=== PATIENT | male | born 1940 | race Caucasian/White ===

== ENCOUNTER 2018-08-18 09:55 | Inpatient (IN) | payer MEDICARE ==
[~2018-08-18] VITALS: Ht 165.1 cm; Wt 73.6 kg
[2018-08-18] VITALS (22 sets, daily range): BP systolic 79–148; BP diastolic 38–95; PULSE 52–100; RESP 7–65; Ht 165.1 cm; Wt 73.6 kg
[~2018-08-18 09:55] MED LIST: EPHEDrine 25 MG/5 ML SYG IV ONE
[2018-08-18] MEDS ORDERED: ASPI325T30 PO (10:39)
[2018-08-18] MEDS ORDERED: METF500T24 PO (10:39)
[2018-08-18] MEDS ORDERED: TAMS-14 PO ×2 (10:39)
[2018-08-18] MEDS ORDERED: FOLI-49 PO (10:39)
[2018-08-18] MEDS ORDERED: MULTI PO (10:39)
[2018-08-18] MEDS ORDERED: ASCO500C7 PO (10:39)
[2018-08-18] MEDS ORDERED: MONT10TA21 PO (10:39)
[2018-08-18] MEDS ORDERED: ATOR40TA68 PO (10:39)
[2018-08-18] MEDS ORDERED: RAMI10CA42 PO (10:39)
[2018-08-18] MEDS ORDERED: FENO145T25 PO (10:39)
[2018-08-18] MEDS ORDERED: METO-319 PO (10:39)
[2018-08-18] MEDS ORDERED: VIAG25 PO (10:41)
--- NOTE | 2018-08-18 11:25 | PREAC ---
Date/Time of Note Date/Time of Note DATE: 08/18/18 TIME: Anesthesia Eval and Record Evaluation Time Pre-Procedure Interview DATE: 08/18/18 TIME: : Age 77 Sex male NPO: 8 hrs Preoperative diagnosis painful hardware L3-L5 Planned procedure removal of lumbar pedicle screws L3, L4, L5 Past Medical History Past Medical History: Includes Cardio: HTN, Dyslipidemia, CAD, PTCA/Stent Endo: Diabetes Surgery & Anesthesia Issues No known issue Meds Anticoagulation: No Beta Marycruz within 24 hr: Yes Reason Beta Marycruz not given: Bradycarida, Hypotension Reported Medications Sildenafil Citrate* (Viagra*) 25 Mg Tablet, 25 MG PO DAILY PRN for ERECTILE DYSFUN, TAB 08/18/18 Aspirin* (Aspirin*) 325 Mg Tablet, 325 MG PO DAILY, TAB 08/18/18 Fenofibrate Nanocrystallized* (Tricor*) 145 Mg Tablet, 145 MG PO DAILY, TAB 08/18/18 Folic Acid* (Folic Acid*) 1 Mg Tablet, 1 MG PO DAILY, TAB 08/18/18 Atorvastatin* (Atorvastatin*) 40 Mg Tablet, 40 MG PO QHS, #30 TAB 08/18/18 Tamsulosin Hcl* (Flomax*) 0.4 Mg Cap.er.24h, 0.4 MG PO BID, CAP 08/18/18 Montelukast Sodium* (Singulair*) 10 Mg Tablet, 10 MG PO QAM, #30 TAB 08/18/18 Tamsulosin Hcl* (Flomax*) 0.4 Mg Cap.er.24h, 0.4 MG PO HS, CAP 08/18/18 Multivitamins* (Theragran*) 1 Tab Tab, 1 TAB PO DAILY, TAB 08/18/18 Ascorbic Acid* (Vitamin C*) 500 Mg Capsule.sa, 500 MG PO DAILY, CAP 08/18/18 Metoprolol Succinate* (Toprol XL*) 50 Mg Tab.er.24h, 50 MG PO DAILY, #30 TAB 08/18/18 Ramipril (Altace) 10 Mg Capsule, 10 MG PO DAILY, CAP 08/18/18 Metformin Hcl* (Metformin Hcl*) 500 Mg Tablet, 500 MG PO WITH BREAKFAST DINNE, #30 TAB 08/18/18 Current Medications Sodium Chloride 1,000 ml @ 25 mls/hr Q24H IV ; Start 08/18/18 at 11:00 Meds reviewed: Yes Allergies Coded Allergies: Penicillins (Verified Allergy, Severe, RASHES, 08/18/18) Allergies Reviewed: Yes Labs/Studies Labs Reviewed: Reviewed by anesthesiologist test: N/A Studies: ECG, CXR Pre-procedure Exam Airway: Adequate mouth opening, Adequate thyromental dist Mallampati: Mallampati II Teeth: Normal Lung: Normal Heart: Normal ASA Physical Status ASA physical status: 3 Emergency: None Planned Anesthetic General/MAC: ETT Planned Pain Management Parenteral pain med Pre-operative Attestations Prior to commencing anesthesia and surgery, the patient was re-evaluated, there was verification of: *The patient's identity *The results of appropriate recent lab work and preoperative vital signs *The above evaluation not changing prior to induction *Anesthetic plan, risk benefits, alternative and complications discussed with patient/family; questions answered; patient/family understands, accepts and wishes to proceed. JOHN SCHULTZ MD Aug 18, 2018 11:25
[2018-08-18] MEDS ORDERED: LIDOCAINE 1%/EPI 30 ML INJ ONE (11:48)
[2018-08-18] MEDS ORDERED: POLYMYXIN/BACITRACIN 1L IRRIG ONE (11:48)
[2018-08-18] MEDS ORDERED: GELATIN SIZE 100 SPONGE TOP ONE (11:48)
[2018-08-18] MEDS ORDERED: THROMBIN 5000 UNIT VIAL ONE (11:48)
[2018-08-18] MEDS ORDERED: SUCCINYLCHOLINE CHLORIDE 100 MG/5 ML SYG IV ONE (11:54)
[2018-08-18] MEDS ORDERED: MIDAZOLAM 1 MG/ML 2 ML INJ ONE (11:54)
[2018-08-18] MEDS ORDERED: ROCURONIUM 50 MG INJ ONE (11:54)
[2018-08-18] MEDS ORDERED: LIDOCAINE 2% (SDV) 5 ML INJ ONE (11:54)
[2018-08-18] MEDS ORDERED: PROPOFOL 20 ML ONE (11:54)
[2018-08-18] MEDS ORDERED: FENTAnyl 50 MCG/ML VIAL ONE (11:57)
[2018-08-18] MEDS ORDERED: CLINDAMYCIN 900 MG/D5W (PMX) 50 ML IVPB ONE (12:25)
[2018-08-18] MEDS ORDERED: ONDANSETRON 4 MG INJ ONE (12:26)
[2018-08-18] MEDS ORDERED: METOCLOPRAMIDE 10 MG INJ ONE (12:26)
[2018-08-18] MEDS ORDERED: FAMOTIDINE 20 MG INJ ONE (12:26)
--- NOTE | 2018-08-18 12:33 | PREOPHP ---
DATE OF ADMISSION: 08/18/2018 HISTORY OF PRESENT ILLNESS: The patient is a 77-year-old male with a history of a lumbar fusion at L 3-L4-L5, has been having pain in the lumbar spine for quite some time now. He had a surgery back in 1999 with L3, L4, L5 laminectomy, fusion, instrumentation. The patient now having hardware pain. He has tried lumbar epidural injections without any relief. Has tried physical therapy, pain managemen t without relief. The patient wants something more definitive to be done. Unfortunately the only op tion left at this point is for patient to undergo removal of lumbar hardware. The procedure was expl ained to the patient in great detail with complications that were explained excessively. The patient understands and will proceed with the surgical intervention. PAST MEDICAL HISTORY: Per chart. SURGICAL HISTORY: Per chart, including lumbar fusion approximately 19 years ago. SOCIAL HISTORY: Per chart. ALLERGIES: PER CHART. MEDICATIONS: Taken at home per chart. FAMILY HISTORY: Unremarkable. REVIEW OF SYSTEMS The pertinent positives stated in physical examination. PHYSICAL EXAMINATION: GENERAL: Patient is awake, alert, oriented, follows commands properly. HEENT: Unremarkable. PULMONARY: No dyspnea, no tachypnea. CARDIOVASCULAR: No JVD. EXTREMITIES: No pedal edema noted. ABDOMEN: Soft. No guarding. NEUROLOGIC: Awake, alert, oriented, follows commands. Has good strength in the upper extremities. Lower extremity examination of both sides but is having some weakness and pain with rotation and flex ion of the lumbar spine. IMAGING FINDINGS: X-rays of the lumbar spine shows L3-L4-L5 laminectomy with pedicle screw ins trumentation. ASSESSMENT AND PLAN: Lumbar hardware pain. Recommendation is to proceed with surgical intervention with removal of lumbar hardware. The procedure explained to the patient in great detail with benefit s, possible complications heart attack and even as well as the complications associated wi th anesthesia. The patient understands and wishes to proceed with the surgery. Patient will be admi tted to the hospital thereafter for further care and management. Dictated By: TIMMY MERINO/LORY Conf#: [id number] DID#: [id number]
[2018-08-18] MEDS ORDERED: hydrALAzine 20 MG INJ IV PRN (13:00)
[2018-08-18] MEDS ORDERED: MEPERIDINE 25 MG INJ IV PRN (13:00)
[2018-08-18] MEDS ORDERED: EPHEDrine 25 MG/5 ML SYG IV PRN (13:00)
[2018-08-18] MEDS ORDERED: ONDANSETRON 4 MG INJ IV PRN ×2 (13:00→18:00)
[2018-08-18] MEDS ORDERED: LABETALOL HCL 20MG INJ IV PRN (13:00)
[2018-08-18] MEDS ORDERED: DIPHENHYDRAMINE 50 MG INJ IV PRN (13:00)
[2018-08-18] MEDS ORDERED: HYDROmorphONE 1 MG/5 ML IV SYRINGE IV PRN ×3 (13:00)
[2018-08-18] MEDS ORDERED: PROCHLORPERAZINE 10 MG INJ IV PRN (13:00)
[2018-08-18] MEDS ORDERED: FENTAnyl 50 MCG/ML VIAL IV PRN (13:00)
[2018-08-18] MEDS ORDERED: HYDROmorphONE 2 MG/ML SYG ONE (13:25)
[2018-08-18] MEDS ORDERED: PHENYLephrine (100 MCG/ML) 10ML SYG ONE (13:51)
--- NOTE | 2018-08-18 14:06 | OPR ---
Date/Time of Note Date/Time of Note DATE: 08/18/18 TIME: 14:04 Operative Report Preoperative Diagnosis lumbar hardware pain Postoperative Diagnosis same Operation/Procedure Performed removal of lumbar hardware, l3-4-5 Surgeon TIMMY BENJAMIN MD Telephone Answering Service Operator Slim Garcia Anesthesia Type: general Estimated Blood Loss: 100 - 150 ml's Transfusion none Specimen lumbar hardware Grafts/Implants none Complications none Pt Condition Post Procedure: stable Procedure Description removal of lumbar 3-4-5 hardware SLIM STOUT PA-C Aug 18, 2018 14:06
--- NOTE | 2018-08-18 14:21 | PAC ---
Date/Time of Note Date/Time of Note DATE: 08/18/18 TIME: 14:19 Post-Anesthesia Notes Post-Anesthesia Note Last documented vital signs Vital Signs Date Temp Pulse Resp B/P (MAP) Pulse Ox O2 O2 Flow FiO2 Time Delivery Rate 08/18/18 97.2 52 16 143/71 97 11:19 (95) Activity: WNL Respiratory function: WNL Cardiovascular function: WNL Mental status: Baseline Pain reasonably controlled: Yes Hydration appropriate: Yes Nausea/Vomiting absent: Yes Comments BP: 121/95 HR: 86 RR: 15 T: 98.3 SaO2: 98% JOHN SCHULTZ MD Aug 18, 2018 14:21
[2018-08-18] MEDS ORDERED: HYDROCODONE/APAP (5/325) TAB PO PRN (14:30)
[2018-08-18] MEDS ORDERED: morphine 2 MG INJ IV PRN (14:30)
[2018-08-18] MEDS: SOD CHLORIDE 0.9% 1,000 ML IV SCH (15:06)
--- NOTE | 2018-08-18 17:45 | HP ---
Date/Time of Note Date/Time of Note DATE: 08/18/18 TIME: 17:32 Assessment/Plan VTE Prophylaxis Risk score (from Ns)>0 risk: 5 SCD applied (from Ns): Yes Pharmacological prophylaxis: NA/contraindicated Pharm contraindication: surgical contra Lines/Catheters IV Catheter Type (from Nrsg): Peripheral IV Assessment/Plan Assessment/Plan -Acute on chronic back pain with history of L3-L4-L5 meniscectomy fusion and instrumentation, status post lumbar hardware removal by Dr. Fajardo on 08/18/2018. Continue IV fluids and postoperative antibiotic. Continue [place] and morphine for pain and Zofran as needed for nausea. -History of VT, status post cardiac stent placement, continue metoprolol and aspirin. -Pretension, continue ramipril -Hyperlipidemia, continue TriCor and statin. -Diabetes, continue metformin and NovoLog per sliding scale -BPH continue Flomax ID. Further recommendations based on clinical course. Plan of care discussed with Dr. Adams. Results 24hrs Laboratory Tests Test 08/18/18 10:51 Bedside Glucose 144 HPI/ROS Admit Date/Time Admit Date/Time Aug 18, 2018 at 09:55 Hx of Present Illness Patient is 77-year-old male with history of coronary artery disease status post stent placement, hypertension hyperlipidemia, diabetes and enlarged prostate, and chronic low back pain. Patient has a history of L3-L4-L5 laminectomy fusion and instrumentation in 1999. Patient was evaluated by Dr. Fraser in neurosurgery consultation for worsening pain which failed epidural injections physical therapy and pain management. Patient was brought to the hospital and underwent lumbar hardware removal. Postoperatively patient experiencing significant pain, nausea and anxiety and patient will be admitted for further evaluation and management. ROS Point review of system is negative except for what mentioned in HPI PMH/Family/Social Past Medical History Medical History: coronary artery disease, high cholesterol, hypertension Medications Current Medications Sodium Chloride 1,000 ml @ 25 mls/hr Q24H IV Last administered on 08/18/18at 15:06; Admin Dose 25 MLS/HR; Start 08/18/18 at 11:00 Hydromorphone HCl (Dilaudid) 0.2 mg PACU PRN IV MILD PAIN 1-3; Start 08/18/18 at 13:00; Stop 08/18/18 at 20:00 Hydromorphone HCl (Dilaudid) 0.4 mg PACU PRN IV MOD PAIN 4-6; Start 08/18/18 at 13:00; Stop 08/18/18 at 20:00 Hydromorphone HCl (Dilaudid) 0.6 mg PACU PRN IV SEVERE PAIN 7-10; Start 08/18/18 at 13:00; Stop 08/18/18 at 20:00 Fentanyl (Sublimaze) 25 mcg PACU ORDER PRN IV MILD PAIN 1-3; Start 08/18/18 at 13:00; Stop 08/18/18 at 20:00 Ondansetron HCl (Zofran Inj) 4 mg PACU ORDER PRN IV NAUSEA/VOMITING Last administered on 08/18/18at 16:26; Admin Dose 4 MG; Start 08/18/18 at 13:00; Stop 08/18/18 at 20:00 Prochlorperazine (Compazine Inj) 5 mg PACU ORDER PRN IV NAUSEA/VOMITING; Start 08/18/18 at 13:00; Stop 08/18/18 at 20:00 Labetalol HCl (Labetalol) 5 mg PACU ORDER PRN IV HIGH BLOOD PRESSURE; Start 08/18/18 at 13:00; Stop 08/18/18 at 20:00 Hydralazine HCl (Apresoline) 5 mg PACU ORDER PRN IV HIGH BLOOD PRESSURE; Start 08/18/18 at 13:00; Stop 08/18/18 at 20:00 Ephedrine Sulfate 5 mg PACU ORDER PRN IV BLOOD PRESSURE SUPPORT; Start 08/18/18 at 13:00; Stop 08/18/18 at 20:00 Meperidine HCl (Demerol) 25 mg PACU ORDER PRN IV .RIGORS; Start 08/18/18 at 13:0 0; Stop 08/18/18 at 20:00 Diphenhydramine HCl (Benadryl) 25 mg PACU ORDER PRN IV .PRURITUS; Start 08/18/18 at 13:00; Stop 08/18/18 at 20:00 Morphine Sulfate (morphine) 2 mg Q4H PRN IV SEVERE PAIN LEVEL 7-10; Start 08/18/18 at 14:30 Acetaminophen/ Hydrocodone Bitart ([place] (5/325)) 1 tab Q4H PRN PO MODERATE PAIN LEVEL 4-6; Start 08/18/18 at 14:30 Ondansetron HCl (Zofran Inj) 4 mg Q6H PRN IV NAUSEA AND/OR VOMITING; Start 08/18/18 at 14:30 Clindamycin HCl/ Dextrose 50 ml @ 50 mls/hr Q6 IVPB ; Start 08/18/18 at 18:00; Stop 08/19/18 at 18:00 Coded Allergies: Penicillins (Verified Allergy, Severe, RASHES, 08/18/18) Past Surgical History Past Surgical Hx: other (Status post lumbar laminectomy instrumentation and fusion in 1999, status post cardiac stent placement in 2001, status post appendectomy 1950.) Family History Significant Family History: no pertinent family hx Social History Alcohol Use: none Smoking Status: Former smoker Drug Use: none Exam/Review of Systems Vital Signs Vitals Vital Signs Date Temp Pulse Resp B/P (MAP) Pulse Ox O2 O2 Flow FiO2 Time Delivery Rate 08/18/18 56 141/61 98 Nasal 3.0 15:07 (87) Cannula 08/18/18 98.3 14:21 08/18/18 100 14:13 Exam Constitutional: alert, oriented Head: normocephalic Neck: supple Respiratory: clear to auscultation Cardiovascular: regular rate and rhythm Gastrointestinal: soft, non-tender Musculoskeletal: other (Status post back surgical incision with intact dressing, Hemovac ) Extremities: normal pulses Neurological: nl mental status Skin: nl SCARLET Holder Aug 18, 2018 17:43
[2018-08-18] MEDS ORDERED: ZOLPIDEM 5 MG TAB PO PRN (18:00)
[2018-08-18] MEDS ORDERED: GLUCOSE GEL 15 GRAM TUBE PO PRN ×2 (18:30)
[2018-08-18] MEDS ORDERED: DEXTROSE 50% 50 ML SYRINGE IV PRN ×2 (18:30)
[2018-08-18] MEDS: INSULIN ASPART [NOVOLOG] 3 ML PEN SC SCH ×2 (18:30→21:00)
[2018-08-18] MEDS ORDERED: GLUCAGON 1 MG INJ IM PRN (18:30)
[2018-08-18] MEDS ORDERED: GLUCOSE GEL 15 GRAM TUBE BUCCAL PRN (18:30)
[2018-08-18] MEDS: ONDANSETRON 4 MG INJ IV PRN (20:07)
[2018-08-18] MEDS: ATORVASTATIN 40 MG TAB PO SCH (20:09)
[2018-08-18] MEDS: TAMSULOSIN (SR) 0.4 MG CAP PO SCH (20:10)
[2018-08-18] MEDS: FAMOTIDINE 20 MG TAB PO SCH (20:10)
[2018-08-18] MEDS: DOCUSATE SODIUM 100 MG CAP PO SCH (20:10)
[2018-08-18] MEDS: CLINDAMYCIN 600 MG/D5W (PMX) 50 ML IVPB SCH (20:14)
[2018-08-18] MEDS ORDERED: TAMSULOSIN (SR) 0.4 MG CAP PO SCH (21:00)
[2018-08-19 00:32] VITALS: BP 134/62; PULSE 78; RESP 18
[2018-08-19] MEDS: CLINDAMYCIN 600 MG/D5W (PMX) 50 ML IVPB SCH ×4 (00:42→18:27)
[2018-08-19 07:30] VITALS: BP 135/85; PULSE 97; RESP 18
[2018-08-19] MEDS: MONTELUKAST 10 MG TAB PO SCH (08:49)
[2018-08-19] MEDS: FOLIC ACID 1 MG TAB PO SCH (08:50)
[2018-08-19] MEDS: FAMOTIDINE 20 MG TAB PO SCH ×2 (08:50→21:52)
[2018-08-19] MEDS: TAMSULOSIN (SR) 0.4 MG CAP PO SCH ×2 (08:50→21:52)
[2018-08-19] MEDS: DOCUSATE SODIUM 100 MG CAP PO SCH ×2 (08:50→21:58)
[2018-08-19] MEDS: metFORMIN 500 MG TAB PO SCH ×2 (08:50→16:55)
[2018-08-19] MEDS: FENOFIBRATE 145 MG TAB PO SCH (08:50)
[2018-08-19] MEDS: FINASTERIDE 5 MG TAB PO SCH (08:50)
[2018-08-19] MEDS: MULTIVITAMINS THERAPEUTIC TAB PO SCH (08:51)
[2018-08-19] MEDS: BENAZEPRIL 40 MG TAB PO SCH (08:51)
[2018-08-19] MEDS: ASCORBIC ACID 500 MG TAB PO SCH (08:51)
[2018-08-19] MEDS: METOPROLOL (XL) 50 MG TAB PO SCH (08:52)
[2018-08-19] MEDS: INSULIN ASPART [NOVOLOG] 3 ML PEN SC SCH ×4 (08:56→21:00)
[2018-08-19] MEDS ORDERED: ASPIRIN 325 MG TAB PO SCH (09:00)
[2018-08-19] MEDS: SOD CHLORIDE 0.9% 1,000 ML IV SCH (11:00)
[2018-08-19] MEDS ORDERED: traMADol 50 MG TAB PO PRN (14:00)
--- NOTE | 2018-08-19 14:16 | PN ---
Date/Time of Note Date/Time of Note DATE: 08/19/18 TIME: 14:02 Assessment/Plan VTE Prophylaxis Risk score (from Ns)>0 risk: 3 SCD applied (from Ns): Yes Pharmacological prophylaxis: NA/contraindicated Pharm contraindication: surgical contra Lines/Catheters IV Catheter Type (from Nrsg): Peripheral IV Urinary Cath still in place: No Assessment/Plan Hospital Course Patient is awake, alert, pain is adequately controlled minimal amount of drainage from Hemovac. Patient complains of difficulty voiding, continued on Flomax and finasteride. Dr. Boyd is asked to see patient in urology consultation. Assessment/Plan -Acute on chronic back pain with history of L3-L4-L5 meniscectomy fusion and instrumentation, status post lumbar hardware removal by Dr. Fajardo on 08/18/2018. Continue IV fluids and postoperative antibiotic. Continue [place] and morphine for pain and Zofran as needed for nausea. -History of VA, status post cardiac stent placement, continue metoprolol and aspirin. -Pretension, continue ramipril -Hyperlipidemia, continue TriCor and statin. -Diabetes, continue metformin and NovoLog per sliding scale -BPH, continue Flomax and finasteride. Further recommendations based on clinical course. Plan of care discussed with Dr. Adams. Result Diagram: 08/19/18 0435 08/19/18 0435 Results 24hrs Laboratory Tests Test 08/18/18 21:55 08/19/18 04:35 08/19/18 07:13 08/19/18 08:47 Bedside Glucose 166 160 White Blood Count 9.7 Red Blood Count 4.18 L Hemoglobin 13.3 L Hematocrit 38.7 L Mean Corpuscular 92.6 Volume Mean Corpuscular 31.8 Hemoglobin Mean Corpuscular 34.4 Hemoglobin Concent Red Cell 12.7 Distribution Width Platelet Count 177 Mean Platelet 11.2 H Volume Immature 0.400 Granulocytes % Neutrophils % 80.1 H Lymphocytes % 11.8 L Monocytes % 7.0 Eosinophils % 0.0 Basophils % 0.7 Nucleated Red 0.0 Blood Cells % Immature 0.040 H Granulocytes # Neutrophils # 7.7 H Lymphocytes # 1.1 Monocytes # 0.7 Eosinophils # 0.0 Basophils # 0.1 Nucleated Red 0.0 Blood Cells # Sodium Level 141 Potassium Level 4.1 Chloride Level 105 Carbon Dioxide 24 Level Anion Gap 12 Blood Urea 16 Nitrogen Creatinine 1.02 Est Glomerular Filtrat Rate mL/min Glucose Level 164 Calcium Level 9.4 Lab Scanned Report REFERENCE LAB Test 08/19/18 12:52 Bedside Glucose 165 Exam/Review of Systems Exam Vitals Vital Signs Date Temp Pulse Resp B/P (MAP) Pulse Ox O2 O2 Flow FiO2 Time Delivery Rate 08/19/18 98.3 97 18 135/85 97 07:30 (102) 08/19/18 Room Air 00:32 08/18/18 3.0 15:57 Intake and Output 08/18/18 08/18/18 08/19/18 1515:00 23:00 07:00 IntakeIntake Total 1300 ml 70 ml 400 ml OutputOutput Total 110 ml 230 ml 370 ml BalanceBalance 1190 ml -160 ml 30 ml Exam Constitutional: alert, oriented Respiratory: clear to auscultation Cardiovascular: regular rate and rhythm Gastrointestinal: soft, non-tender Musculoskeletal: other (Status post back surgical incision with intact dressing, Hemovac) Extremities: normal pulses Neurological: nl mental status Skin: nl turgor Results Results 24hrs Laboratory Tests Test 08/18/18 21:55 08/19/18 04:35 08/19/18 07:13 08/19/18 08:47 Bedside Glucose 166 160 White Blood Count 9.7 Red Blood Count 4.18 L Hemoglobin 13.3 L Hematocrit 38.7 L Mean Corpuscular 92.6 Volume Mean Corpuscular 31.8 Hemoglobin Mean Corpuscular 34.4 Hemoglobin Concent Red Cell 12.7 Distribution Width Platelet Count 177 Mean Platelet 11.2 H Volume Immature 0.400 Granulocytes % Neutrophils % 80.1 H Lymphocytes % 11.8 L Monocytes % 7.0 Eosinophils % 0.0 Basophils % 0.7 Nucleated Red 0.0 Blood Cells % Immature 0.040 H Granulocytes # Neutrophils # 7.7 H Lymphocytes # 1.1 Monocytes # 0.7 Eosinophils # 0.0 Basophils # 0.1 Nucleated Red 0.0 Blood Cells # Sodium Level 141 Potassium Level 4.1 Chloride Level 105 Carbon Dioxide 24 Level Anion Gap 12 Blood Urea 16 Nitrogen Creatinine 1.02 Est Glomerular Filtrat Rate mL/min Glucose Level 164 Calcium Level 9.4 Lab Scanned Report REFERENCE LAB Test 08/19/18 12:52 Bedside Glucose 165 Medications Medication Current Medications Sodium Chloride 1,000 ml @ 25 mls/hr Q24H IV Last administered on 08/18/18 15:06; Admin Dose 25 MLS/HR; Start 08/18/18 at 11:00 Morphine Sulfate (morphine) 2 mg Q4H PRN IV SEVERE PAIN LEVEL 7-10; Start 08/18/18 at 14:30 Acetaminophen/ Hydrocodone Bitart ([place] (5/325)) 1 tab Q4H PRN PO MODERATE PAIN LEVEL 4-6; Start 08/18/18 at 14:30 Ondansetron HCl (Zofran Inj) 4 mg Q6H PRN IV NAUSEA AND/OR VOMITING Last administered on 08/18/18 20:07; Admin Dose 4 MG; Start 08/18/18 at 14:30 Clindamycin HCl/ Dextrose 50 ml @ 50 mls/hr Q6 IVPB Last administered on 08/19/18 12:54; Admin Dose 50 MLS/HR; Start 08/18/18 at 18:00; Stop 08/19/18 at 18:00 Ascorbic Acid (Vitamin C) 500 mg DAILY PO Last administered on 08/19/18 08:51; Admin Dose 500 MG; Start 08/19/18 at 09:00 Aspirin (Aspirin) 325 mg DAILY PO ; Start 08/19/18 at 09:00; Status Hold Atorvastatin Calcium (Lipitor) 40 mg QHS PO Last administered on 08/18/18 20:09; Admin Dose 40 MG; Start 08/18/18 at 21:00 Fenofibrate (Tricor) 145 mg DAILY PO Last administered on 08/19/18 08:50; Admin Dose 145 MG; Start 08/19/18 at 09:00 Folic Acid (Folic Acid) 1 mg DAILY PO Last administered on 08/19/18 08:50; Admin Dose 1 MG; Start 08/19/18 at 09:00 Metformin HCl (Glucophage) 500 mg WITH BREAKFAST DINNE PO Last administered on 08/19/18 08:50; Admin Dose 500 MG; Start 08/19/18 at 07:50 Metoprolol Succinate (Toprol Xl) 50 mg DAILY PO Last administered on 08/19/18 08:52; Admin Dose 50 MG; Start 08/19/18 at 09:00 Montelukast Sodium (Singulair) 10 mg QAM PO Last administered on 08/19/18 08:49; Admin Dose 10 MG; Start 08/19/18 at 09:00 Multivitamins Therapeutic (Theragran) 1 tab DAILY PO Last administered on 08/19/18 08:51; Admin Dose 1 TAB; Start 08/19/18 at 09:00 Benazepril HCl (Lotensin) 40 mg DAILY PO Last administered on 08/19/18 08:51; Admin Dose 40 MG; Start 08/19/18 at 09:00 Tamsulosin HCl (Flomax) 0.4 mg BID PO Last administered on 08/19/18 08:50; Admin Dose 0.4 MG; Start 08/18/18 at 21:00 Ondansetron HCl (Zofran Inj) 4 mg Q6H PRN IV NAUSEA/VOMITING; Start 08/18/18 at 18:00 Docusate Sodium (Colace) 100 mg Q12 PO Last administered on 08/19/18 08:50; Admin Dose 100 MG; Start 08/18/18 at 21:00 Zolpidem Tartrate (Ambien) 5 mg QHS PRN PO .INSOMNIA; Start 08/18/18 at 18:00 Famotidine (Pepcid) 20 mg Q12 PO Last administered on 08/19/18 08:50; Admin Dose 20 MG; Start 08/18/18 at 21:00 Insulin Aspart (Novolog Insulin Pen) NOVOLOG *MILD* ALGORITHM WITH MEALS BEDTIME SC Last administered on 08/19/18 12:58; Admin Dose 1 UNIT; Start 08/18/18 at 18:30 Miscellaneous Information 1 ea NOTE XX ; Start 08/18/18 at 18:30 Glucose (Glutose) 15 gm Q15M PRN PO DECREASED GLUCOSE; Start 08/18/18 at 18:30 Glucose (Glutose) 22.5 gm Q15M PRN PO DECREASED GLUCOSE; Start 08/18/18 at 18:3 0 Dextrose (D50w Syringe) 25 ml Q15M PRN IV DECREASED GLUCOSE; Start 08/18/18 at 18:30 Dextrose (D50w Syringe) 50 ml Q15M PRN IV DECREASED GLUCOSE; Start 08/18/18 at 18:30 Glucagon (Glucagen) 1 mg Q15M PRN IM DECREASED GLUCOSE; Start 08/18/18 at 18:30 Glucose (Glutose) 15 gm Q15M PRN BUCCAL DECREASED GLUCOSE; Start 08/18/18 at 18:30 Finasteride (Proscar) 5 mg DAILY PO Last administered on 08/19/18at 08:50; Admin Dose 5 MG; Start 08/19/18 at 09:00 SCARLET SU Aug 19, 2018 14:14
[2018-08-19 14:23] VITALS: BP 129/94; PULSE 90; RESP 18
--- NOTE | 2018-08-19 15:46 | CONS ---
Assessment/Plan Assessment/Plan Assessment/Plan (Daily) seen and examined awake alert follows moves all sens intact pt co urinary retention, pt has hx of urinary retention and hx of enlarged prostate will insert hernandez overnight and will dc hernandez maría elena keep drain in place Consultation Date/Type/Reason Admit Date/Time Aug 18, 2018 at 09:55 Initial Consult Date Date/Time of Note DATE: 08/19/18 TIME: 15:41 Exam/Review of Systems Exam Vitals Vital Signs Date Temp Pulse Resp B/P (MAP) Pulse Ox O2 O2 Flow FiO2 Time Delivery Rate 08/19/18 98.8 90 18 129/94 100 14:23 (106) 08/19/18 Room Air 00:32 08/18/18 3.0 15:57 Intake and Output 08/18/18 08/18/18 08/19/18 1515:00 23:00 07:00 IntakeIntake Total 1300 ml 70 ml 400 ml OutputOutput Total 110 ml 230 ml 370 ml BalanceBalance 1190 ml -160 ml 30 ml Results Result Diagram: 08/19/18 0435 08/19/18 0435 Results 24hrs Laboratory Tests Test 08/18/18 21:55 08/19/18 04:35 08/19/18 07:13 08/19/18 08:47 Bedside Glucose 166 160 White Blood Count 9.7 Red Blood Count 4.18 L Hemoglobin 13.3 L Hematocrit 38.7 L Mean Corpuscular 92.6 Volume Mean Corpuscular 31.8 Hemoglobin Mean Corpuscular 34.4 Hemoglobin Concent Red Cell 12.7 Distribution Width Platelet Count 177 Mean Platelet 11.2 H Volume Immature 0.400 Granulocytes % Neutrophils % 80.1 H Lymphocytes % 11.8 L Monocytes % 7.0 Eosinophils % 0.0 Basophils % 0.7 Nucleated Red 0.0 Blood Cells % Immature 0.040 H Granulocytes # Neutrophils # 7.7 H Lymphocytes # 1.1 Monocytes # 0.7 Eosinophils # 0.0 Basophils # 0.1 Nucleated Red 0.0 Blood Cells # Sodium Level 141 Potassium Level 4.1 Chloride Level 105 Carbon Dioxide 24 Level Anion Gap 12 Blood Urea 16 Nitrogen Creatinine 1.02 Est Glomerular Filtrat Rate mL/min Glucose Level 164 Calcium Level 9.4 Lab Scanned Report REFERENCE LAB Test 08/19/18 12:52 Bedside Glucose 165 Medications Medication Current Medications Sodium Chloride 1,000 ml @ 25 mls/hr Q24H IV Last administered on 08/18/18 15:06; Admin Dose 25 MLS/HR; Start 08/18/18 at 11:00 Morphine Sulfate (morphine) 2 mg Q4H PRN IV SEVERE PAIN LEVEL 7-10; Start 08/18/18 at 14:30 Acetaminophen/ Hydrocodone Bitart ([place] (5/325)) 1 tab Q4H PRN PO MODERATE PAIN LEVEL 4-6; Start 08/18/18 at 14:30 Ondansetron HCl (Zofran Inj) 4 mg Q6H PRN IV NAUSEA AND/OR VOMITING Last administered on 08/18/18 20:07; Admin Dose 4 MG; Start 08/18/18 at 14:30 Clindamycin HCl/ Dextrose 50 ml @ 50 mls/hr Q6 IVPB Last administered on 08/19/18 12:54; Admin Dose 50 MLS/HR; Start 08/18/18 at 18:00; Stop 08/19/18 at 18:00 Ascorbic Acid (Vitamin C) 500 mg DAILY PO Last administered on 08/19/18 08:51; Admin Dose 500 MG; Start 08/19/18 at 09:00 Aspirin (Aspirin) 325 mg DAILY PO ; Start 08/19/18 at 09:00; Status Hold Atorvastatin Calcium (Lipitor) 40 mg QHS PO Last administered on 08/18/18 20:09; Admin Dose 40 MG; Start 08/18/18 at 21:00 Fenofibrate (Tricor) 145 mg DAILY PO Last administered on 08/19/18 08:50; Admin Dose 145 MG; Start 08/19/18 at 09:00 Folic Acid (Folic Acid) 1 mg DAILY PO Last administered on 08/19/18 08:50; Admin Dose 1 MG; Start 08/19/18 at 09:00 Metformin HCl (Glucophage) 500 mg WITH BREAKFAST DINNE PO Last administered on 08/19/18 08:50; Admin Dose 500 MG; Start 08/19/18 at 07:50 Metoprolol Succinate (Toprol Xl) 50 mg DAILY PO Last administered on 08/19/18 08:52; Admin Dose 50 MG; Start 08/19/18 at 09:00 Montelukast Sodium (Singulair) 10 mg QAM PO Last administered on 08/19/18 08:49; Admin Dose 10 MG; Start 08/19/18 at 09:00 Multivitamins Therapeutic (Theragran) 1 tab DAILY PO Last administered on 08/19/18 08:51; Admin Dose 1 TAB; Start 08/19/18 at 09:00 Benazepril HCl (Lotensin) 40 mg DAILY PO Last administered on 08/19/18 08:51; Admin Dose 40 MG; Start 08/19/18 at 09:00 Tamsulosin HCl (Flomax) 0.4 mg BID PO Last administered on 08/19/18 08:50; Admin Dose 0.4 MG; Start 08/18/18 at 21:00 Ondansetron HCl (Zofran Inj) 4 mg Q6H PRN IV NAUSEA/VOMITING; Start 08/18/18 at 18:00 Docusate Sodium (Colace) 100 mg Q12 PO Last administered on 08/19/18 08:50; Admin Dose 100 MG; Start 08/18/18 at 21:00 Zolpidem Tartrate (Ambien) 5 mg QHS PRN PO .INSOMNIA; Start 08/18/18 at 18:00 Famotidine (Pepcid) 20 mg Q12 PO Last administered on 08/19/18 08:50; Admin Dose 20 MG; Start 08/18/18 at 21:00 Insulin Aspart (Novolog Insulin Pen) NOVOLOG *MILD* ALGORITHM WITH MEALS BEDTIME SC Last administered on 08/19/18 12:58; Admin Dose 1 UNIT; Start 08/18/18 at 18:30 Miscellaneous Information 1 ea NOTE XX ; Start 08/18/18 at 18:30 Glucose (Glutose) 15 gm Q15M PRN PO DECREASED GLUCOSE; Start 08/18/18 at 18:30 Glucose (Glutose) 22.5 gm Q15M PRN PO DECREASED GLUCOSE; Start 08/18/18 at 18:30 Dextrose (D50w Syringe) 25 ml Q15M PRN IV DECREASED GLUCOSE; Start 08/18/18 at 18:30 Dextrose (D50w Syringe) 50 ml Q15M PRN IV DECREASED GLUCOSE; Start 08/18/18 at 18:30 Glucagon (Glucagen) 1 mg Q15M PRN IM DECREASED GLUCOSE; Start 08/18/18 at 18:30 Glucose (Glutose) 15 gm Q15M PRN BUCCAL DECREASED GLUCOSE; Start 08/18/18 at 18:30 Finasteride (Proscar) 5 mg DAILY PO Last administered on 08/19/18at 08:50; Admin Dose 5 MG; Start 08/19/18 at 09:00 Tramadol HCl (Ultram) 50 mg Q6H PRN PO MODERATE PAIN LEVEL 4-6; Start 08/19/18 at 14:00 ERIKA STOUT PA-C Aug 19, 2018 15:46
--- NOTE | 2018-08-19 18:41 | CONS ---
Assessment/Plan Assessment/Plan Hospital Course (Demo Recall) 77-year-old male underwent surgery on August 18, 2018. He had hardware removed from his lumbar area L3-L4 and L5 Postop he has not been able to urinate and had a Jimenez catheter put in and when the catheter was removed he still was unable to urinate even though he is on tamsulosin 0.4 mg twice a day and finasteride 5 mg daily. Therefore a urological consultation was requested. The patient does have a history of enlargement of the prostate and has been taking the medication for it for the past 2 years. He usually does have nocturia about 2 times a night and during the day he voids 2-3 times he describes his urinary stream is medium he denies any dysuria he does have postvoid dribbling that is mild and he feels he does not empty his bladder well however at night he does urinate and when he finished he feels like he has to urinate again he was told by his urologist to wait and count to 20 and then urinate again patient denies any prior history of gross hematuria and there is no urgency or urgency incontinence. He states that his serum PSA has been normal and he has not had any cystoscopy or prostate biopsy. The patient underwent pelvic ultrasound today and that showed a high postvoid residual and an enlarged prostate. Because of the bladder distention again he had a Jimenez catheter put in. He with urinary retention could be related to his pain and the fact that he is in bed as well as his pain medications and a factor from the prostate. He is already on prostate medications. I will add a low-dose of Urecholine for him and discontinue the Jimenez catheter at 6 AM. If he voids well then he could go home without the catheter and if he does not void then he could have the catheter put back in and connect it to a leg bag and then he could follow-up with his urologist to have it removed later on. Consultation Date/Type/Reason Admit Date/Time Aug 18, 2018 at 09:55 Date of Consultation: Aug 19, 2018 Type of Consult Urology Reason for Consultation Urinary retention Requesting Provider: ELOINA WEIR MD Date/Time of Note DATE: 08/19/18 TIME: 18:24 Hx of Present Illness 77-year-old male underwent surgery on August 18, 2018. He had hardware removed from his lumbar area L3-L4 and L5 Postop he has not been able to urinate and had a Jimenez catheter put in and when the catheter was removed he still was unable to urinate even though he is on tamsulosin 0.4 mg twice a day and finasteride 5 mg daily. Therefore a urological consultation was requested. The patient does have a history of enlargement of the prostate and has been taking the medication for it for the past 2 years. He usually does have nocturia about 2 times a night and during the day he voids 2-3 times he describes his urinary stream is medium he denies any dysuria he does have postvoid dribbling that is mild and he feels he does not empty his bladder well however at night he does urinate and when he finished he feels like he has to urinate again he was told by his urologist to wait and count to 20 and then urinate again patient denies any prior history of gross hematuria and there is no urgency or urgency incontinence. He states that his serum PSA has been normal and he has not had any cystoscopy or prostate biopsy. Subjective hx not possible: pt non-verbal Constitutional: no complaints Eyes: other (History of surgery on his right eye for cataract) ENT: no complaints Respiratory: no complaints; No shortness of breath Cardiovascular: no complaints Gastrointestinal: no complaints Genitourinary: other (As per history of present illness) Musculoskeletal: back pain (His back pain is less now than it was before. He just complains of incisional pain) Skin: no complaints Neurologic: no complaints Endocrine: no complaints Past Medical History Medical History: coronary artery disease (Myocardial infarction in 1983), diabetes, high cholesterol, hypertension Home Meds Reported Medications Sildenafil Citrate* (Viagra*) 25 Mg Tablet, 25 MG PO DAILY PRN for ERECTILE DYSFUN, TAB 08/18/18 Aspirin* (Aspirin*) 325 Mg Tablet, 325 MG PO DAILY, TAB 08/18/18 Fenofibrate Nanocrystallized* (Tricor*) 145 Mg Tablet, 145 MG PO DAILY, TAB 08/18/18 Folic Acid* (Folic Acid*) 1 Mg Tablet, 1 MG PO DAILY, TAB 08/18/18 Atorvastatin* (Atorvastatin*) 40 Mg Tablet, 40 MG PO QHS, #30 TAB 08/18/18 Tamsulosin Hcl* (Flomax*) 0.4 Mg Cap.er.24h, 0.4 MG PO BID, CAP 08/18/18 Montelukast Sodium* (Singulair*) 10 Mg Tablet, 10 MG PO QAM, #30 TAB 08/18/18 Tamsulosin Hcl* (Flomax*) 0.4 Mg Cap.er.24h, 0.4 MG PO HS, CAP 08/18/18 Multivitamins* (Theragran*) 1 Tab Tab, 1 TAB PO DAILY, TAB 08/18/18 Ascorbic Acid* (Vitamin C*) 500 Mg Capsule.sa, 500 MG PO DAILY, CAP 08/18/18 Metoprolol Succinate* (Toprol XL*) 50 Mg Tab.er.24h, 50 MG PO DAILY, #30 TAB 08/18/18 Ramipril (Altace) 10 Mg Capsule, 10 MG PO DAILY, CAP 08/18/18 Metformin Hcl* (Metformin Hcl*) 500 Mg Tablet, 500 MG PO WITH BREAKFAST DINNE, #30 TAB 08/18/18 Medications Current Medications Sodium Chloride 1,000 ml @ 25 mls/hr Q24H IV Last administered on 08/18/18at 15:06; Admin Dose 25 MLS/HR; Start 08/18/18 at 11:00 Morphine Sulfate (morphine) 2 mg Q4H PRN IV SEVERE PAIN LEVEL 7-10; Start 08/18/18 at 14:30 Acetaminophen/ Hydrocodone Bitart ([place] (5/325)) 1 tab Q4H PRN PO MODERATE PAIN LEVEL 4-6; Start 08/18/18 at 14:30 Ondansetron HCl (Zofran Inj) 4 mg Q6H PRN IV NAUSEA AND/OR VOMITING Last administered on 08/18/18at 20:07; Admin Dose 4 MG; Start 08/18/18 at 14:30 Ascorbic Acid (Vitamin C) 500 mg DAILY PO Last administered on 08/19/18at 08:51; Admin Dose 500 MG; Start 08/19/18 at 09:00 Aspirin (Aspirin) 325 mg DAILY PO ; Start 08/19/18 at 09:00; Status Hold Atorvastatin Calcium (Lipitor) 40 mg QHS PO Last administered on 08/18/18at 20:09; Admin Dose 40 MG; Start 08/18/18 at 21:00 Fenofibrate (Tricor) 145 mg DAILY PO Last administered on 08/19/18 08:50; Admin Dose 145 MG; Start 08/19/18 at 09:00 Folic Acid (Folic Acid) 1 mg DAILY PO Last administered on 08/19/18 08:50; Admin Dose 1 MG; Start 08/19/18 at 09:00 Metformin HCl (Glucophage) 500 mg WITH BREAKFAST DINNE PO Last administered on 08/19/18 16:55; Admin Dose 500 MG; Start 08/19/18 at 07:50 Metoprolol Succinate (Toprol Xl) 50 mg DAILY PO Last administered on 08/19/18 08:52; Admin Dose 50 MG; Start 08/19/18 at 09:00 Montelukast Sodium (Singulair) 10 mg QAM PO Last administered on 08/19/18 08:49; Admin Dose 10 MG; Start 08/19/18 at 09:00 Multivitamins Therapeutic (Theragran) 1 tab DAILY PO Last administered on 08/19/18 08:51; Admin Dose 1 TAB; Start 08/19/18 at 09:00 Benazepril HCl (Lotensin) 40 mg DAILY PO Last administered on 08/19/18 08:51; Admin Dose 40 MG; Start 08/19/18 at 09:00 Tamsulosin HCl (Flomax) 0.4 mg BID PO Last administered on 08/19/18 08:50; Admin Dose 0.4 MG; Start 08/18/18 at 21:00 Ondansetron HCl (Zofran Inj) 4 mg Q6H PRN IV NAUSEA/VOMITING; Start 08/18/18 at 18:00 Docusate Sodium (Colace) 100 mg Q12 PO Last administered on 08/19/18 08:50; Admin Dose 100 MG; Start 08/18/18 at 21:00 Zolpidem Tartrate (Ambien) 5 mg QHS PRN PO .INSOMNIA; Start 08/18/18 at 18:00 Famotidine (Pepcid) 20 mg Q12 PO Last administered on 08/19/18 08:50; Admin Dose 20 MG; Start 08/18/18 at 21:00 Insulin Aspart (Novolog Insulin Pen) NOVOLOG *MILD* ALGORITHM WITH MEALS BEDTIME SC Last administered on 08/19/18 16:57; Admin Dose 1 UNIT; Start 08/18/18 at 18:30 Miscellaneous Information 1 ea NOTE XX ; Start 08/18/18 at 18:30 Glucose (Glutose) 15 gm Q15M PRN PO DECREASED GLUCOSE; Start 08/18/18 at 18:30 Glucose (Glutose) 22.5 gm Q15M PRN PO DECREASED GLUCOSE; Start 08/18/18 at 18:30 Dextrose (D50w Syringe) 25 ml Q15M PRN IV DECREASED GLUCOSE; Start 08/18/18 at 18:30 Dextrose (D50w Syringe) 50 ml Q15M PRN IV DECREASED GLUCOSE; Start 08/18/18 at 18:30 Glucagon (Glucagen) 1 mg Q15M PRN IM DECREASED GLUCOSE; Start 08/18/18 at 18:30 Glucose (Glutose) 15 gm Q15M PRN BUCCAL DECREASED GLUCOSE; Start 08/18/18 at 18:30 Finasteride (Proscar) 5 mg DAILY PO Last administered on 08/19/18at 08:50; Admin Dose 5 MG; Start 08/19/18 at 09:00 Tramadol HCl (Ultram) 50 mg Q6H PRN PO MODERATE PAIN LEVEL 4-6; Start 08/19/18 at 14:00 Allergies: Coded Allergies: Penicillins (Verified Allergy, Severe, RASHES, 08/18/18) Past Surgical History Past Surgical Hx: appendectomy, other (Status post lumbar laminectomy and fusion in 1999, status post cardiac stent placement in 1990, status post appendectomy 1950 also tonsillectomy and right cataract surgery. He had lumbar laminectomy about an year ago.) Family History Significant Family History: other (Father at age 49 from car accident and mother at age 99 from old age) Social History Alcohol Use: none Smoking Status: Former smoker Drug Use: none Exam/Review of Systems Exam Vitals Vital Signs Date Temp Pulse Resp B/P (MAP) Pulse Ox O2 O2 Flow FiO2 Time Delivery Rate 08/19/18 98.8 90 18 129/94 100 14:23 (106) 08/19/18 Room Air 00:32 08/18/18 3.0 15:57 Intake and Output 08/18/18 08/18/18 08/19/18 1414:59 22:59 06:59 IntakeIntake Total 1300 ml 70 ml 400 ml OutputOutput Total 110 ml 230 ml 370 ml BalanceBalance 1190 ml -160 ml 30 ml Constitutional: alert, oriented Psych: no complaints Head: normocephalic Eyes: nl conjunctiva ENMT: nl external ears & nose Neck: supple Respiratory: normal air movement; No wheezing Cardiovascular: No jugular venous distention (JVD) Gastrointestinal: soft (No mass palpable) Genitourinary - Male: other (Rectal exam: Prostate large and soft); No CVA tenderness Musculoskeletal: nl extremities to inspection Extremities: No calf tenderness Results Result Diagram: 08/19/18 0435 08/19/18 0435 Results 24hrs Laboratory Tests Test 08/18/18 21:55 08/19/18 04:35 08/19/18 07:13 08/19/18 08:47 Bedside Glucose 166 160 White Blood Count 9.7 Red Blood Count 4.18 L Hemoglobin 13.3 L Hematocrit 38.7 L Mean Corpuscular 92.6 Volume Mean Corpuscular 31.8 Hemoglobin Mean Corpuscular 34.4 Hemoglobin Concent Red Cell 12.7 Distribution Width Platelet Count 177 Mean Platelet 11.2 H Volume Immature 0.400 Granulocytes % Neutrophils % 80.1 H Lymphocytes % 11.8 L Monocytes % 7.0 Eosinophils % 0.0 Basophils % 0.7 Nucleated Red 0.0 Blood Cells % Immature 0.040 H Granulocytes # Neutrophils # 7.7 H Lymphocytes # 1.1 Monocytes # 0.7 Eosinophils # 0.0 Basophils # 0.1 Nucleated Red 0.0 Blood Cells # Sodium Level 141 Potassium Level 4.1 Chloride Level 105 Carbon Dioxide 24 Level Anion Gap 12 Blood Urea 16 Nitrogen Creatinine 1.02 Est Glomerular Filtrat Rate mL/min Glucose Level 164 Calcium Level 9.4 Lab Scanned Report REFERENCE LAB Test 08/19/18 12:52 08/19/18 16:46 Bedside Glucose 165 147 Imaging Imaging Pelvic ultrasound: The urinary bladder bladder is normal in size, contour and wall thickness. No evidence of bladder stones. No evidence of a bladder mass. There is a prevoid volume of 869 cc and there is a post void volume of 679 cc. The prostate is enlarged in size measuring 4.2 x 4.3 x 5.0 cm. IMPRESSION: 1. Urinary bladder demonstrates a 679 cc postvoid residual. 2. Prostatomegaly. Medications Medication Current Medications Sodium Chloride 1,000 ml @ 25 mls/hr Q24H IV Last administered on 08/18/18 15:06; Admin Dose 25 MLS/HR; Start 08/18/18 at 11:00 Morphine Sulfate (morphine) 2 mg Q4H PRN IV SEVERE PAIN LEVEL 7-10; Start 08/18/18 at 14:30 Acetaminophen/ Hydrocodone Bitart ([place] (5/325)) 1 tab Q4H PRN PO MODERATE PAIN LEVEL 4-6; Start 08/18/18 at 14:30 Ondansetron HCl (Zofran Inj) 4 mg Q6H PRN IV NAUSEA AND/OR VOMITING Last administered on 08/18/18 20:07; Admin Dose 4 MG; Start 08/18/18 at 14:30 Ascorbic Acid (Vitamin C) 500 mg DAILY PO Last administered on 08/19/18 08:51; Admin Dose 500 MG; Start 08/19/18 at 09:00 Aspirin (Aspirin) 325 mg DAILY PO ; Start 08/19/18 at 09:00; Status Hold Atorvastatin Calcium (Lipitor) 40 mg QHS PO Last administered on 08/18/18 20:09; Admin Dose 40 MG; Start 08/18/18 at 21:00 Fenofibrate (Tricor) 145 mg DAILY PO Last administered on 08/19/18 08:50; Admi n Dose 145 MG; Start 08/19/18 at 09:00 Folic Acid (Folic Acid) 1 mg DAILY PO Last administered on 08/19/18 08:50; Admin Dose 1 MG; Start 08/19/18 at 09:00 Metformin HCl (Glucophage) 500 mg WITH BREAKFAST DINNE PO Last administered on 08/19/18 16:55; Admin Dose 500 MG; Start 08/19/18 at 07:50 Metoprolol Succinate (Toprol Xl) 50 mg DAILY PO Last administered on 08/19/18 08:52; Admin Dose 50 MG; Start 08/19/18 at 09:00 Montelukast Sodium (Singulair) 10 mg QAM PO Last administered on 08/19/18 08:49; Admin Dose 10 MG; Start 08/19/18 at 09:00 Multivitamins Therapeutic (Theragran) 1 tab DAILY PO Last administered on 08/19/18 08:51; Admin Dose 1 TAB; Start 08/19/18 at 09:00 Benazepril HCl (Lotensin) 40 mg DAILY PO Last administered on 08/19/18at 08:51; Admin Dose 40 MG; Start 08/19/18 at 09:00 Tamsulosin HCl (Flomax) 0.4 mg BID PO Last administered on 08/19/18 08:50; Admin Dose 0.4 MG; Start 08/18/18 at 21:00 Ondansetron HCl (Zofran Inj) 4 mg Q6H PRN IV NAUSEA/VOMITING; Start 08/18/18 at 18:00 Docusate Sodium (Colace) 100 mg Q12 PO Last administered on 08/19/18at 08:50; Admin Dose 100 MG; Start 08/18/18 at 21:00 Zolpidem Tartrate (Ambien) 5 mg QHS PRN PO .INSOMNIA; Start 08/18/18 at 18:00 Famotidine (Pepcid) 20 mg Q12 PO Last administered on 08/19/18at 08:50; Admin Dose 20 MG; Start 08/18/18 at 21:00 Insulin Aspart (Novolog Insulin Pen) NOVOLOG *MILD* ALGORITHM WITH MEALS BEDTIME SC Last administered on 08/19/18at 16:57; Admin Dose 1 UNIT; Start 08/18/18 at 18:30 Miscellaneous Information 1 ea NOTE XX ; Start 08/18/18 at 18:30 Glucose (Glutose) 15 gm Q15M PRN PO DECREASED GLUCOSE; Start 08/18/18 at 18:30 Glucose (Glutose) 22.5 gm Q15M PRN PO DECREASED GLUCOSE; Start 08/18/18 at 18:30 Dextrose (D50w Syringe) 25 ml Q15M PRN IV DECREASED GLUCOSE; Start 08/18/18 at 18:30 Dextrose (D50w Syringe) 50 ml Q15M PRN IV DECREASED GLUCOSE; Start 08/18/18 at 18:30 Glucagon (Glucagen) 1 mg Q15M PRN IM DECREASED GLUCOSE; Start 08/18/18 at 18:30 Glucose (Glutose) 15 gm Q15M PRN BUCCAL DECREASED GLUCOSE; Start 08/18/18 at 18:30 Finasteride (Proscar) 5 mg DAILY PO Last administered on 08/19/18at 08:50; Admin Dose 5 MG; Start 08/19/18 at 09:00 Tramadol HCl (Ultram) 50 mg Q6H PRN PO MODERATE PAIN LEVEL 4-6; Start 08/19/18 at 14:00 ORALIA NOEL MD Aug 19, 2018 18:35
[2018-08-19 19:15] VITALS: BP 129/60; PULSE 86; RESP 18
[2018-08-19] MEDS: ATORVASTATIN 40 MG TAB PO SCH (21:51)
[2018-08-19] MEDS: BETHANECHOL 10 MG TAB PO SCH (21:53)
[2018-08-20 02:20] VITALS: BP 119/58; PULSE 75; RESP 18
[2018-08-20 07:34] VITALS: BP 116/54; PULSE 65; RESP 18
[2018-08-20] MEDS: DOCUSATE SODIUM 100 MG CAP PO SCH ×2 (09:01→21:29)
[2018-08-20] MEDS: FOLIC ACID 1 MG TAB PO SCH (09:01)
[2018-08-20] MEDS: FENOFIBRATE 145 MG TAB PO SCH (09:01)
[2018-08-20] MEDS: FAMOTIDINE 20 MG TAB PO SCH ×2 (09:01→21:29)
[2018-08-20] MEDS: ASCORBIC ACID 500 MG TAB PO SCH (09:01)
[2018-08-20] MEDS: MULTIVITAMINS THERAPEUTIC TAB PO SCH (09:01)
[2018-08-20] MEDS: FINASTERIDE 5 MG TAB PO SCH (09:02)
[2018-08-20] MEDS: MONTELUKAST 10 MG TAB PO SCH (09:02)
[2018-08-20] MEDS: BETHANECHOL 10 MG TAB PO SCH ×3 (09:02→21:28)
[2018-08-20] MEDS: TAMSULOSIN (SR) 0.4 MG CAP PO SCH ×2 (09:02→21:28)
[2018-08-20] MEDS: BENAZEPRIL 40 MG TAB PO SCH (09:03)
[2018-08-20] MEDS: METOPROLOL (XL) 50 MG TAB PO SCH (09:03)
[2018-08-20] MEDS: INSULIN ASPART [NOVOLOG] 3 ML PEN SC SCH ×4 (09:05→21:00)
[2018-08-20] MEDS: metFORMIN 500 MG TAB PO SCH ×2 (09:08→17:56)
[2018-08-20] MEDS: SOD CHLORIDE 0.9% 1,000 ML IV SCH (11:00)
--- NOTE | 2018-08-20 13:52 | CONS ---
Consult Date/Type/Reason Admit Date/Time Aug 18, 2018 at 09:55 Initial Consult Date 08/19/18 Type of Consultation: Urology Reason for Consultation Urinary retention Requesting Provider: ELOINA WEIR MD Date/Time of Note DATE: 08/20/18 TIME: 13:45 Subjective Patient urinated a small amount of clear but his postvoid residual was high and he needed straight catheterization. Objective Vitals Vital Signs Date Temp Pulse Resp B/P (MAP) Pulse Ox O2 O2 Flow FiO2 Time Delivery Rate 08/20/18 98.1 65 18 116/54 99 Room Air 07:34 (74) 08/18/18 3.0 15:57 Intake and Output 08/19/18 08/19/18 08/20/18 1515:00 23:00 07:00 IntakeIntake Total 400 ml 290 ml OutputOutput Total 690 ml 1170 ml 1730 ml BalanceBalance -290 ml -880 ml -1730 ml Exam Patient is trying to drink more fluids so he could try to urinate again. He is comfortable and has no pain at the present Results/Medications Result Diagram: 08/20/18 0431 08/20/18 0431 Results 24 hrs Laboratory Tests Test 08/19/18 16:46 08/19/18 21:51 08/20/18 04:31 08/20/18 08:35 Bedside Glucose 147 141 146 White Blood Count 9.0 Red Blood Count 4.01 L Hemoglobin 13.0 L Hematocrit 37.3 L Mean Corpuscular 93.0 Volume Mean Corpuscular 32.4 Hemoglobin Mean Corpuscular 34.9 Hemoglobin Concent Red Cell 12.8 Distribution Width Platelet Count 155 Mean Platelet Volume 12.0 H Immature 0.300 Granulocytes % Neutrophils % 70.5 Lymphocytes % 18.2 Monocytes % 9.5 Eosinophils % 0.8 Basophils % 0.7 Nucleated Red Blood 0.0 Cells % Immature 0.030 Granulocytes # Neutrophils # 6.3 Lymphocytes # 1.6 Monocytes # 0.9 Eosinophils # 0.1 Basophils # 0.1 Nucleated Red Blood 0.0 Cells # Sodium Level 143 Potassium Level 4.0 Chloride Level 107 Carbon Dioxide Level 27 Anion Gap 9 Blood Urea Nitrogen 12 Creatinine 0.95 Est Glomerular Filtrat Rate mL/min Glucose Level 159 Calcium Level 9.2 Test 08/20/18 12:51 Bedside Glucose 168 Home Meds Reported Medications Sildenafil Citrate* (Viagra*) 25 Mg Tablet, 25 MG PO DAILY PRN for ERECTILE DYSFUN, TAB 08/18/18 Aspirin* (Aspirin*) 325 Mg Tablet, 325 MG PO DAILY, TAB 08/18/18 Fenofibrate Nanocrystallized* (Tricor*) 145 Mg Tablet, 145 MG PO DAILY, TAB 08/18/18 Folic Acid* (Folic Acid*) 1 Mg Tablet, 1 MG PO DAILY, TAB 08/18/18 Atorvastatin* (Atorvastatin*) 40 Mg Tablet, 40 MG PO QHS, #30 TAB 08/18/18 Tamsulosin Hcl* (Flomax*) 0.4 Mg Cap.er.24h, 0.4 MG PO BID, CAP 08/18/18 Montelukast Sodium* (Singulair*) 10 Mg Tablet, 10 MG PO QAM, #30 TAB 08/18/18 Tamsulosin Hcl* (Flomax*) 0.4 Mg Cap.er.24h, 0.4 MG PO HS, CAP 08/18/18 Multivitamins* (Theragran*) 1 Tab Tab, 1 TAB PO DAILY, TAB 08/18/18 Ascorbic Acid* (Vitamin C*) 500 Mg Capsule.sa, 500 MG PO DAILY, CAP 08/18/18 Metoprolol Succinate* (Toprol XL*) 50 Mg Tab.er.24h, 50 MG PO DAILY, #30 TAB 08/18/18 Ramipril (Altace) 10 Mg Capsule, 10 MG PO DAILY, CAP 08/18/18 Metformin Hcl* (Metformin Hcl*) 500 Mg Tablet, 500 MG PO WITH BREAKFAST DINNE, #30 TAB 08/18/18 Medications Current Medications Sodium Chloride 1,000 ml @ 25 mls/hr Q24H IV Last administered on 08/18/18at 15:06; Admin Dose 25 MLS/HR; Start 08/18/18 at 11:00 Morphine Sulfate (morphine) 2 mg Q4H PRN IV SEVERE PAIN LEVEL 7-10; Start 08/18/18 at 14:30 Acetaminophen/ Hydrocodone Bitart ([place] (5/325)) 1 tab Q4H PRN PO MODERATE PAIN LEVEL 4-6; Start 08/18/18 at 14:30 Ondansetron HCl (Zofran Inj) 4 mg Q6H PRN IV NAUSEA AND/OR VOMITING Last administered on 08/18/18 20:07; Admin Dose 4 MG; Start 08/18/18 at 14:30 Ascorbic Acid (Vitamin C) 500 mg DAILY PO Last administered on 08/20/18 09:01; Admin Dose 500 MG; Start 08/19/18 at 09:00 Aspirin (Aspirin) 325 mg DAILY PO ; Start 08/19/18 at 09:00; Status Hold Atorvastatin Calcium (Lipitor) 40 mg QHS PO Last administered on 08/19/18 21:51; Admin Dose 40 MG; Start 08/18/18 at 21:00 Fenofibrate (Tricor) 145 mg DAILY PO Last administered on 08/20/18 09:01; Admin Dose 145 MG; Start 08/19/18 at 09:00 Folic Acid (Folic Acid) 1 mg DAILY PO Last administered on 08/20/18 09:01; Admin Dose 1 MG; Start 08/19/18 at 09:00 Metformin HCl (Glucophage) 500 mg WITH BREAKFAST DINNE PO Last administered on 08/20/18 09:08; Admin Dose 500 MG; Start 08/19/18 at 07:50 Metoprolol Succinate (Toprol Xl) 50 mg DAILY PO Last administered on 08/20/18 09:03; Admin Dose 50 MG; Start 08/19/18 at 09:00 Montelukast Sodium (Singulair) 10 mg QAM PO Last administered on 08/20/18 09:02; Admin Dose 10 MG; Start 08/19/18 at 09:00 Multivitamins Therapeutic (Theragran) 1 tab DAILY PO Last administered on 08/20/18 09:01; Admin Dose 1 TAB; Start 08/19/18 at 09:00 Benazepril HCl (Lotensin) 40 mg DAILY PO Last administered on 08/20/18 09:03; Admin Dose 40 MG; Start 08/19/18 at 09:00 Tamsulosin HCl (Flomax) 0.4 mg BID PO Last administered on 08/20/18 09:02; Admin Dose 0.4 MG; Start 08/18/18 at 21:00 Ondansetron HCl (Zofran Inj) 4 mg Q6H PRN IV NAUSEA/VOMITING; Start 08/18/18 at 18:00 Docusate Sodium (Colace) 100 mg Q12 PO Last administered on 08/20/18at 09:01; Admin Dose 100 MG; Start 08/18/18 at 21:00 Zolpidem Tartrate (Ambien) 5 mg QHS PRN PO .INSOMNIA; Start 08/18/18 at 18:00 Famotidine (Pepcid) 20 mg Q12 PO Last administered on 08/20/18at 09:01; Admin Dose 20 MG; Start 08/18/18 at 21:00 Insulin Aspart (Novolog Insulin Pen) NOVOLOG *MILD* ALGORITHM WITH MEALS BEDTIME SC Last administered on 08/20/18at 12:57; Admin Dose 1 UNIT; Start 08/18/18 at 18:30 Miscellaneous Information 1 ea NOTE XX ; Start 08/18/18 at 18:30 Glucose (Glutose) 15 gm Q15M PRN PO DECREASED GLUCOSE; Start 08/18/18 at 18:30 Glucose (Glutose) 22.5 gm Q15M PRN PO DECREASED GLUCOSE; Start 08/18/18 at 18:30 Dextrose (D50w Syringe) 25 ml Q15M PRN IV DECREASED GLUCOSE; Start 08/18/18 at 18:30 Dextrose (D50w Syringe) 50 ml Q15M PRN IV DECREASED GLUCOSE; Start 08/18/18 at 18:30 Glucagon (Glucagen) 1 mg Q15M PRN IM DECREASED GLUCOSE; Start 08/18/18 at 18:30 Glucose (Glutose) 15 gm Q15M PRN BUCCAL DECREASED GLUCOSE; Start 08/18/18 at 18:30 Finasteride (Proscar) 5 mg DAILY PO Last administered on 08/20/18at 09:02; Admin Dose 5 MG; Start 08/19/18 at 09:00 Tramadol HCl (Ultram) 50 mg Q6H PRN PO MODERATE PAIN LEVEL 4-6; Start 08/19/18 at 14:00 Bethanechol Chloride (Urecholine) 10 mg TID PO Last administered on 08/20/18at 12:35; Admin Dose 10 MG; Start 08/19/18 at 21:00 Assessment/Plan Hospital Course (Demo Recall) 77-year-old male underwent surgery on August 18, 2018. He had hardware removed from his lumbar area L3-L4 and L5 Postop he has not been able to urinate and had a Jimenez catheter put in and when the catheter was removed he still was unable to urinate even though he is on tamsulosin 0.4 mg twice a day and finasteride 5 mg daily. Therefore a urological consultation was requested. The patient does have a history of enlargement of the prostate and has been taking the medication for it for the past 2 years. He usually does have nocturia about 2 times a night and during the day he voids 2-3 times. He describes his urinary stream as medium. He denies any dysuria,he does have postvoid dribbling that is mild and he feels he does not empty his bladder well. However at night he does urinate and when he finishes he feels like he has to urinate again. He was told by his urologist to wait and count to 20 and then urinate again. Patient denies any prior history of gross hematuria and there is no urgency or urgency incontinence. He states that his serum PSA has been normal and he has not had any cystoscopy or prostate biopsy. The patient underwent pelvic ultrasound and that showed a high postvoid residual and an enlarged prostate. Because of the bladder distention again he had a Jimenez catheter put in. The urinary retention could be related to his pain and the fact that he is in bed as well as his pain medications and a factor from the prostate. He is already on prostate medications. I did add a low-dose of Urecholine for him and discontinued the Jimenez catheter at 6 AM. He voided small amount but his real was high and needed straight catheterization. And after that he did not urinate. Is trying to drink more fluids so he could urinate and then the nurse will check his postvoid residual again. If the patient has a postvoid residual of 300 mL or more he needs to have a Jimenez catheter. If he does not urinate and his bladder scan shows 500 mL or more he also will need a Jimenez catheter and then he could go home with the Jimenez catheter and a leg bag and follow-up with his own urologist. His tells me that she already made an appointment for him with his urologist for Thursday August 23, 2018. ORALIA NEOL MD Aug 20, 2018 13:52
[2018-08-20] MEDS: ONDANSETRON 4 MG INJ IV PRN (15:36)
--- NOTE | 2018-08-20 17:24 | CONS ---
Assessment/Plan Assessment/Plan Assessment/Plan (Daily) seen and examined doing well, less back pain having urinary retention, per pt he develops urinary retention after anesthesia, has hx bph, sees urologist able to ambulate around the floor without difficulty keep hemovac another 24hrs will dc hemovac maría elena pt may go home maría elena Consultation Date/Type/Reason Admit Date/Time Aug 18, 2018 at 09:55 Initial Consult Date Requesting Provider: ELOINA WEIR MD Date/Time of Note DATE: 08/20/18 TIME: 17:22 Exam/Review of Systems Exam Vitals Vital Signs Date Temp Pulse Resp B/P (MAP) Pulse Ox O2 O2 Flow FiO2 Time Delivery Rate 08/20/18 98.1 65 18 116/54 99 Room Air 07:34 (74) 08/18/18 3.0 15:57 Intake and Output 08/19/18 08/19/18 08/20/18 1515:00 23:00 07:00 IntakeIntake Total 400 ml 290 ml OutputOutput Total 690 ml 1170 ml 1730 ml BalanceBalance -290 ml -880 ml -1730 ml Results Result Diagram: 08/20/18 0431 08/20/18 0431 Results 24hrs Laboratory Tests Test 08/19/18 21:51 08/20/18 04:31 08/20/18 08:35 08/20/18 12:51 Bedside Glucose 141 146 168 White Blood Count 9.0 Red Blood Count 4.01 L Hemoglobin 13.0 L Hematocrit 37.3 L Mean Corpuscular 93.0 Volume Mean Corpuscular 32.4 Hemoglobin Mean Corpuscular 34.9 Hemoglobin Concent Red Cell 12.8 Distribution Width Platelet Count 155 Mean Platelet Volume 12.0 H Immature 0.300 Granulocytes % Neutrophils % 70.5 Lymphocytes % 18.2 Monocytes % 9.5 Eosinophils % 0.8 Basophils % 0.7 Nucleated Red Blood 0.0 Cells % Immature 0.030 Granulocytes # Neutrophils # 6.3 Lymphocytes # 1.6 Monocytes # 0.9 Eosinophils # 0.1 Basophils # 0.1 Nucleated Red Blood 0.0 Cells # Sodium Level 143 Potassium Level 4.0 Chloride Level 107 Carbon Dioxide Level 27 Anion Gap 9 Blood Urea Nitrogen 12 Creatinine 0.95 Est Glomerular Filtrat Rate mL/min Glucose Level 159 Calcium Level 9.2 Medications Medication Current Medications Morphine Sulfate (morphine) 2 mg Q4H PRN IV SEVERE PAIN LEVEL 7-10; Start 08/18/18 at 14:30 Acetaminophen/ Hydrocodone Bitart ([place] (5/325)) 1 tab Q4H PRN PO MODERATE PAIN LEVEL 4-6; Start 08/18/18 at 14:30 Ondansetron HCl (Zofran Inj) 4 mg Q6H PRN IV NAUSEA AND/OR VOMITING Last administered on 08/20/18 15:36; Admin Dose 4 MG; Start 08/18/18 at 14:30 Ascorbic Acid (Vitamin C) 500 mg DAILY PO Last administered on 08/20/18 09:01; Admin Dose 500 MG; Start 08/19/18 at 09:00 Aspirin (Aspirin) 325 mg DAILY PO ; Start 08/19/18 at 09:00; Status Hold Atorvastatin Calcium (Lipitor) 40 mg QHS PO Last administered on 08/19/18 21:51; Admin Dose 40 MG; Start 08/18/18 at 21:00 Fenofibrate (Tricor) 145 mg DAILY PO Last administered on 08/20/18 09:01; Admin Dose 145 MG; Start 08/19/18 at 09:00 Folic Acid (Folic Acid) 1 mg DAILY PO Last administered on 08/20/18 09:01; Admin Dose 1 MG; Start 08/19/18 at 09:00 Metformin HCl (Glucophage) 500 mg WITH BREAKFAST DINNE PO Last administered on 08/20/18 09:08; Admin Dose 500 MG; Start 08/19/18 at 07:50 Metoprolol Succinate (Toprol Xl) 50 mg DAILY PO Last administered on 08/20/18 09:03; Admin Dose 50 MG; Start 08/19/18 at 09:00 Montelukast Sodium (Singulair) 10 mg QAM PO Last administered on 08/20/18 09:02; Admin Dose 10 MG; Start 08/19/18 at 09:00 Multivitamins Therapeutic (Theragran) 1 tab DAILY PO Last administered on 08/20/18 09:01; Admin Dose 1 TAB; Start 08/19/18 at 09:00 Benazepril HCl (Lotensin) 40 mg DAILY PO Last administered on 08/20/18 09:03; Admin Dose 40 MG; Start 08/19/18 at 09:00 Tamsulosin HCl (Flomax) 0.4 mg BID PO Last administered on 08/20/18at 09:02; Admin Dose 0.4 MG; Start 08/18/18 at 21:00 Ondansetron HCl (Zofran Inj) 4 mg Q6H PRN IV NAUSEA/VOMITING; Start 08/18/18 at 18:00 Docusate Sodium (Colace) 100 mg Q12 PO Last administered on 08/20/18at 09:01; Admin Dose 100 MG; Start 08/18/18 at 21:00 Zolpidem Tartrate (Ambien) 5 mg QHS PRN PO .INSOMNIA; Start 08/18/18 at 18:00 Famotidine (Pepcid) 20 mg Q12 PO Last administered on 08/20/18at 09:01; Admin Dose 20 MG; Start 08/18/18 at 21:00 Insulin Aspart (Novolog Insulin Pen) NOVOLOG *MILD* ALGORITHM WITH MEALS BEDTIME SC Last administered on 08/20/18at 12:57; Admin Dose 1 UNIT; Start 08/18/18 at 18:30 Miscellaneous Information 1 ea NOTE XX ; Start 08/18/18 at 18:30 Glucose (Glutose) 15 gm Q15M PRN PO DECREASED GLUCOSE; Start 08/18/18 at 18:30 Glucose (Glutose) 22.5 gm Q15M PRN PO DECREASED GLUCOSE; Start 08/18/18 at 18:30 Dextrose (D50w Syringe) 25 ml Q15M PRN IV DECREASED GLUCOSE; Start 08/18/18 at 18:30 Dextrose (D50w Syringe) 50 ml Q15M PRN IV DECREASED GLUCOSE; Start 08/18/18 at 18:30 Glucagon (Glucagen) 1 mg Q15M PRN IM DECREASED GLUCOSE; Start 08/18/18 at 18:30 Glucose (Glutose) 15 gm Q15M PRN BUCCAL DECREASED GLUCOSE; Start 08/18/18 at 18:30 Finasteride (Proscar) 5 mg DAILY PO Last administered on 08/20/18at 09:02; Admin Dose 5 MG; Start 08/19/18 at 09:00 Tramadol HCl (Ultram) 50 mg Q6H PRN PO MODERATE PAIN LEVEL 4-6; Start 08/19/18 at 14:00 Bethanechol Chloride (Urecholine) 10 mg TID PO Last administered on 08/20/18at 12:35; Admin Dose 10 MG; Start 08/19/18 at 21:00 ERIKA STOUT PA-C Aug 20, 2018 17:24
[2018-08-20] MEDS ORDERED: ZOLPIDEM 5 MG TAB PO PRN (17:30)
[2018-08-20] MEDS: POLYETHYLENE GLYCOL 17 GM PACKET PO SCH (17:56)
[2018-08-20 20:13] VITALS: BP 119/56; PULSE 60; RESP 20
[2018-08-20] MEDS: ATORVASTATIN 40 MG TAB PO SCH (21:29)
[2018-08-21 02:37] VITALS: BP 122/63; PULSE 78; RESP 17
[2018-08-21 07:43] VITALS: BP 113/58; PULSE 65; RESP 18
[2018-08-21] MEDS: FAMOTIDINE 20 MG TAB PO SCH (08:16)
[2018-08-21] MEDS: FENOFIBRATE 145 MG TAB PO SCH (08:16)
[2018-08-21] MEDS: ASCORBIC ACID 500 MG TAB PO SCH (08:17)
[2018-08-21] MEDS: MONTELUKAST 10 MG TAB PO SCH (08:17)
[2018-08-21] MEDS: MULTIVITAMINS THERAPEUTIC TAB PO SCH (08:17)
[2018-08-21] MEDS: DOCUSATE SODIUM 100 MG CAP PO SCH (08:17)
[2018-08-21] MEDS: TAMSULOSIN (SR) 0.4 MG CAP PO SCH (08:17)
[2018-08-21] MEDS: FOLIC ACID 1 MG TAB PO SCH (08:17)
[2018-08-21] MEDS: FINASTERIDE 5 MG TAB PO SCH (08:17)
[2018-08-21] MEDS: BETHANECHOL 10 MG TAB PO SCH ×2 (08:17→12:39)
[2018-08-21] MEDS: POLYETHYLENE GLYCOL 17 GM PACKET PO SCH (08:18)
[2018-08-21] MEDS: METOPROLOL (XL) 50 MG TAB PO SCH (08:18)
[2018-08-21] MEDS: BENAZEPRIL 40 MG TAB PO SCH (08:18)
[2018-08-21] MEDS: INSULIN ASPART [NOVOLOG] 3 ML PEN SC SCH ×2 (08:22→12:38)
[2018-08-21] MEDS: metFORMIN 500 MG TAB PO SCH (08:44)
--- NOTE | 2018-08-21 10:11 | PN ---
DATE: 08/20/2018 SUBJECTIVE: Followup on removal of lumbar hardware L3-L5. Currently, status post PCI, hypertension, dyslipidemia, diabetes, benign prostatic hypertrophy. The patient continues to have intermittent ur ine retention and is requiring straight catheterization. Dr. Boyd has been called. The patient h as been placed on Flomax and Proscar and Dr. Boyd is recommending Jimenez if patient continues to phillip ve retention. The patient denies any chest pain. No reported fever or chills. No reported vomiting , no reported hematuria. PHYSICAL EXAMINATION: GENERAL: The patient is awake, alert. VITAL SIGNS: Temperature 98.1, pulse 64, respirations 18, blood pressure 116/60, 54, O2 sat 99 on ro om air. HEENT: Conjunctivae normal. Oropharynx clear. NECK: Supple, no mass, no thyromegaly. CHEST: Fairly clear. . CARDIOVASCULAR: Regular rate and rhythm. S1, S2 normal, no murmur. ABDOMEN: Soft, nondistended, nontender, no palpable mass. EXTREMITIES: No edema. Pedal pulses palpable. SKIN: Without acute rash or ulcer. NEUROLOGIC: The patient is awake, alert with no gross focal deficit. LABORATORY DATA: Done this morning, WBC 9, hemoglobin 13, platelets 155. Sodium 140, potassium 4, B UN 12, creatinine 0.9, glucose 159, calcium 9.2. IMPRESSION: 1. Intermittent urinary retention. Continue straight catheterization on p.r.n. basis if postvoid re sidual is more than 300. The patient will likely require Jimenez catheter and will be discharged with Jimenez with leg bag and will have followup with urologist as an outpatient. As per , patient's ur ologist, Dr. Mclean has given appointment for 08/23/2018. The patient has history of similar symptom in the past. During his previous back surgery. Hemovac will be continued for another 24-hour as pe r neurosurgery. 2. Coronary artery disease, status post stent placement and aspirin on hold because of Hemovac but c ontinue metoprolol. 3. Hypertension. Blood pressure well controlled with Lotensin and metoprolol. 4. Diabetes. Blood sugar reasonably controlled with current dose of metformin and sliding scale ins ulin. 5. Dyslipidemia. Continue Lipitor. No muscle pain. 6. Benign prostatic hypertrophy. We did have intermittent urinary retention. Continue Proscar and Flomax. Plan of care discussed with the patient's . We will continue to follow. Dictated By: ELOINA WESTON/LORY Conf#: [id number] DID#: [id number] CC: TIMMY BENJAMIN MD;*EndCC*
--- NOTE | 2018-08-21 11:10 | DS ---
Date/Time of Note Date/Time of Note DATE: 08/21/18 TIME: 11:08 Discharge Summary Admission/Discharge Info Admit Date/Time Aug 18, 2018 at 09:55 Discharge Date/Time 08/21/18 Discharge Diagnosis 1. back pain, patient is here for removal of hardware Intermittent urinary retention. Continue straight catheterization on p.r.n. basis if postvoid residual is more than 300. The patient will likely require Jimenez catheter and will be discharged with Jimneez with leg bag and will have followup with urologist as an outpatient. As per , patient's urologist, Dr. Mclean has given appointment for 08/23/2018. The patient has history of similar symptom in the past. During his previous back surgery. Hemovac will be continued for another 24-hour as per neurosurgery. 2. Coronary artery disease, status post stent placement and aspirin on hold because of Hemovac but continue metoprolol. 3. Hypertension. Blood pressure well controlled with Lotensin and metoprolol. 4. Diabetes. Blood sugar reasonably controlled with current dose of metformin and sliding scale insulin. 5. Dyslipidemia. Continue Lipitor. No muscle pain. 6. Benign prostatic hypertrophy. We did have intermittent urinary retention. Continue Proscar and Flomax. Patient Condition: Fair Consults neurosurgery Procedures removal of hardware in back Hx of Present Illness Patient with previous back surgery comes in for removal of hardware. Hospital Course Patient with previous back surgery comes in for removal of hardware. Patient tolerated the procedure and when stable, patient was sent home. Home Meds Reported Medications Sildenafil Citrate* (Viagra*) 25 Mg Tablet, 25 MG PO DAILY PRN for ERECTILE DYSFUN, TAB 08/18/18 Aspirin* (Aspirin*) 325 Mg Tablet, 325 MG PO DAILY, TAB 08/18/18 Fenofibrate Nanocrystallized* (Tricor*) 145 Mg Tablet, 145 MG PO DAILY, TAB 08/18/18 Folic Acid* (Folic Acid*) 1 Mg Tablet, 1 MG PO DAILY, TAB 08/18/18 Atorvastatin* (Atorvastatin*) 40 Mg Tablet, 40 MG PO QHS, #30 TAB 08/18/18 Tamsulosin Hcl* (Flomax*) 0.4 Mg Cap.er.24h, 0.4 MG PO BID, CAP 08/18/18 Montelukast Sodium* (Singulair*) 10 Mg Tablet, 10 MG PO QAM, #30 TAB 08/18/18 Tamsulosin Hcl* (Flomax*) 0.4 Mg Cap.er.24h, 0.4 MG PO HS, CAP 08/18/18 Multivitamins* (Theragran*) 1 Tab Tab, 1 TAB PO DAILY, TAB 08/18/18 Ascorbic Acid* (Vitamin C*) 500 Mg Capsule.sa, 500 MG PO DAILY, CAP 08/18/18 Metoprolol Succinate* (Toprol XL*) 50 Mg Tab.er.24h, 50 MG PO DAILY, #30 TAB 08/18/18 Ramipril (Altace) 10 Mg Capsule, 10 MG PO DAILY, CAP 08/18/18 Metformin Hcl* (Metformin Hcl*) 500 Mg Tablet, 500 MG PO WITH BREAKFAST DINNE, #30 TAB 08/18/18 Primary Care Provider Not On Staff Doctor Pending Labs Laboratory Tests Test 08/20/18 12:51 08/20/18 17:47 08/20/18 21:28 08/21/18 08:16 Bedside 168 152 158 172 Glucose mg/dL (70-220) mg/dL (70-220) mg/dL (70-220) mg/dL (70-220) LIEN VELASQUEZ Aug 21, 2018 11:10
--- NOTE | 2018-08-21 11:37 | CONS ---
Assessment/Plan Assessment/Plan Assessment/Plan (Daily) seen and examined back pain better moves better sens intact drain dced wound looks ok fu instructions given to pt. Consultation Date/Type/Reason Admit Date/Time Aug 18, 2018 at 09:55 Initial Consult Date Requesting Provider: ELOINA WEIR MD Date/Time of Note DATE: 08/21/18 TIME: 11:37 Exam/Review of Systems Exam Vitals Vital Signs Date Temp Pulse Resp B/P (MAP) Pulse Ox O2 O2 Flow FiO2 Time Delivery Rate 08/21/18 98.4 65 18 113/58 98 Room Air 07:43 (76) 08/18/18 3.0 15:57 Intake and Output 08/20/18 08/20/18 08/21/18 1515:00 23:00 07:00 IntakeIntake Total 800 ml 350 ml 400 ml OutputOutput Total 250 ml 1715 ml BalanceBalance 550 ml 350 ml -1315 ml Results Result Diagram: 08/20/18 0431 08/20/18 0431 Results 24hrs Laboratory Tests Test 08/20/18 12:51 08/20/18 17:47 08/20/18 21:28 08/21/18 08:16 Bedside Glucose 168 152 158 172 Medications Medication Current Medications Morphine Sulfate (morphine) 2 mg Q4H PRN IV SEVERE PAIN LEVEL 7-10; Start 08/18/18 at 14:30 Acetaminophen/ Hydrocodone Bitart ([place] (5/325)) 1 tab Q4H PRN PO MODERATE PAIN LEVEL 4-6; Start 08/18/18 at 14:30 Ondansetron HCl (Zofran Inj) 4 mg Q6H PRN IV NAUSEA AND/OR VOMITING Last ad ministered on 08/20/18at 15:36; Admin Dose 4 MG; Start 08/18/18 at 14:30 Ascorbic Acid (Vitamin C) 500 mg DAILY PO Last administered on 08/21/18at 08:17; Admin Dose 500 MG; Start 08/19/18 at 09:00 Aspirin (Aspirin) 325 mg DAILY PO ; Start 08/19/18 at 09:00; Status Hold Atorvastatin Calcium (Lipitor) 40 mg QHS PO Last administered on 08/20/18at 21:29; Admin Dose 40 MG; Start 08/18/18 at 21:00 Fenofibrate (Tricor) 145 mg DAILY PO Last administered on 08/21/18 08:16; Admin Dose 145 MG; Start 08/19/18 at 09:00 Folic Acid (Folic Acid) 1 mg DAILY PO Last administered on 08/21/18 08:17; Admin Dose 1 MG; Start 08/19/18 at 09:00 Metformin HCl (Glucophage) 500 mg WITH BREAKFAST DINNE PO Last administered on 08/21/18 08:44; Admin Dose 500 MG; Start 08/19/18 at 07:50 Metoprolol Succinate (Toprol Xl) 50 mg DAILY PO Last administered on 08/21/18 08:18; Admin Dose 50 MG; Start 08/19/18 at 09:00 Montelukast Sodium (Singulair) 10 mg QAM PO Last administered on 08/21/18 08:17; Admin Dose 10 MG; Start 08/19/18 at 09:00 Multivitamins Therapeutic (Theragran) 1 tab DAILY PO Last administered on 08/21/18 08:17; Admin Dose 1 TAB; Start 08/19/18 at 09:00 Benazepril HCl (Lotensin) 40 mg DAILY PO Last administered on 08/21/18 08:18; Admin Dose 40 MG; Start 08/19/18 at 09:00 Tamsulosin HCl (Flomax) 0.4 mg BID PO Last administered on 08/21/18 08:17; Admin Dose 0.4 MG; Start 08/18/18 at 21:00 Ondansetron HCl (Zofran Inj) 4 mg Q6H PRN IV NAUSEA/VOMITING; Start 08/18/18 at 18:00 Docusate Sodium (Colace) 100 mg Q12 PO Last administered on 08/21/18 08:17; Admin Dose 100 MG; Start 08/18/18 at 21:00 Zolpidem Tartrate (Ambien) 5 mg QHS PRN PO .INSOMNIA Last administered on 08/20/18 22:10; Admin Dose 5 MG; Start 08/18/18 at 18:00 Famotidine (Pepcid) 20 mg Q12 PO Last administered on 08/21/18 08:16; Admin Dose 20 MG; Start 08/18/18 at 21:00 Insulin Aspart (Novolog Insulin Pen) NOVOLOG *MILD* ALGORITHM WITH MEALS BEDTIME SC Last administered on 08/21/18 08:22; Admin Dose 1 UNIT; Start 08/18/18 at 18:30 Miscellaneous Information 1 ea NOTE XX ; Start 08/18/18 at 18:30 Glucose (Glutose) 15 gm Q15M PRN PO DECREASED GLUCOSE; Start 08/18/18 at 18:30 Glucose (Glutose) 22.5 gm Q15M PRN PO DECREASED GLUCOSE; Start 08/18/18 at 18:30 Dextrose (D50w Syringe) 25 ml Q15M PRN IV DECREASED GLUCOSE; Start 08/18/18 at 18:30 Dextrose (D50w Syringe) 50 ml Q15M PRN IV DECREASED GLUCOSE; Start 08/18/18 at 18:30 Glucagon (Glucagen) 1 mg Q15M PRN IM DECREASED GLUCOSE; Start 08/18/18 at 18:30 Glucose (Glutose) 15 gm Q15M PRN BUCCAL DECREASED GLUCOSE; Start 08/18/18 at 18:30 Finasteride (Proscar) 5 mg DAILY PO Last administered on 08/21/18at 08:17; Admin Dose 5 MG; Start 08/19/18 at 09:00 Tramadol HCl (Ultram) 50 mg Q6H PRN PO MODERATE PAIN LEVEL 4-6; Start 08/19/18 at 14:00 Bethanechol Chloride (Urecholine) 10 mg TID PO Last administered on 08/21/18 08:17; Admin Dose 10 MG; Start 08/19/18 at 21:00 Polyethylene Glycol (Miralax) 8.5 gm DAILY PO Last administered on 08/21/18 08:18; Admin Dose 8.5 GM; Start 08/20/18 at 17:30 ERIKA STOUT PA-C Aug 21, 2018 11:37
--- NOTE | 2018-08-23 05:14 | OPR ---
DATE OF OPERATION: 08/18/2018 PREOPERATIVE DIAGNOSIS: Mechanical low back pain status post lumbar fusion with hardware pain. POSTOPERATIVE DIAGNOSIS: Mechanical low back pain status post lumbar fusion with hardware pain. PROCEDURES: 1. L3 bilateral laminectomy, medial facetectomy with decompression of spinal canal, CPT 13004. 2. Removal of posterior segmental instrumentation lumbar spine, L3, L4, L5 level. CPT 83591. SURGEON: Timmy Fraser MD PATIENT REGISTRATION SPECIALIST: Slim Hernandez PA-C COMPLICATIONS OF THE OPERATION: None. ANESTHESIA: General endotracheal. ESTIMATED BLOOD LOSS: Less than 200. COUNTS: Needle count, sponge counts were correct. SPECIMENS: Fragments of the lamina and also of the hardware were sent to pathology. INDICATION FOR OPERATION: The patient is well known to me. The patient has been seen by me on several occasions. Approximately 15 years ago I did an instrumentation of the lumbar spine for this patient with L3, L4, L5 laminectomy, medial facetectomy, laminectomy with fusion instrumentation at the L3 to L5. The patient now complains of hardware pain, low back pain, leg pain, radiation into bilateral lower extremities, has difficulties with mechanical pain of the lumbar spine. He thinks that the hardware is bothering him. We talked about this. He wants the hardware removed. There is no difficulty. We will proceed with removal of hardware, risk of operation including anesthesia, infection, bleeding, permanent neurological injury and was explained. The patient agreed to proceed with the operation and signed the consent. PROCEDURE: The patient was placed in supine position. Adequate general endotracheal anesthesia was obtained. The patient was turned prone on vertical bolsters. Lumbar region was shaved, prepped and draped in normal sterile fashion, infiltrated with lidocaine with epinephrine solution. Midline incision was made with a 10 blade. The incision was carried out to the old hardware. With some difficulty, all the hardware was removed utilizing the old instrumentation technique from 15 years ago. Following this, the inferior portion of the L2-L3 junction was removed to decompress the spinal canal for this. This was in the form of laminectomy with high-speed Mid[employer] Oumar drill #32, and #4 and #5 Kerrison punches. Medium size Hemovac drain was placed in the wound exiting from skin through a separate stab incision, was secured to assist skin with sutures. Closure of wound was done with #1 Vicryl for lumbodorsal fascia, 2-0 and 3-0 Vicryl for subcutaneous tissue and dermis with Steri-Strips for the skin. The patient tolerated procedure well, was taken to postanesthesia recovery in stable condition, following commands, moving all muscle groups of the upper and lower extremities. ____ Dictated By: TIMMY MERINO/LORY Conf#: [id number] DID#: [id number] MTDDonna
== END 2018-08-21 14:17 | disposition home or self-care (01) | DRG 497 ==
LOC: REC 09:55 → MS1 17:08
PROVIDERS: ADMIT Neurological Surgery; ATTEND Neurological Surgery
PROC: 01NB0ZZ Release Lumbar Nerve, Open Approach (ICD-10-PCS; 2018-08-18)
PROC: 0QP004Z Removal of Internal Fixation Device from Lumbar Vertebra, Open Approach (ICD-10-PCS; principal; 2018-08-18 12:00)
PROC: 0T9B70Z Drainage of Bladder with Drainage Device, Via Natural or Artificial Opening (ICD-10-PCS; 2018-08-19)
DX: T84.84XA Pain due to internal orthopedic prosthetic devices, implants and grafts, initial encounter (principal); M54.5 Low back pain; N40.1 Benign prostatic hyperplasia with lower urinary tract symptoms; R33.8 Other retention of urine; I25.2 Old myocardial infarction; R35.1 Nocturia; E78.5 Hyperlipidemia, unspecified; E11.9 Type 2 diabetes mellitus without complications; I25.10 Atherosclerotic heart disease of native coronary artery without angina pectoris; I10 Essential (primary) hypertension; G89.29 Other chronic pain; Z87.891 Personal history of nicotine dependence; Z98.1 Arthrodesis status; Z95.5 Presence of coronary angioplasty implant and graft; Z79.4 Long term (current) use of insulin; Y83.8 Other surgical procedures as the cause of abnormal reaction of the patient, or of later complication, without mention of misadventure at the time of the procedure
CPT/HCPCS: 72100; 76856; 80048; 82962; 85025; 88300; 97110; 97116; 97161; 97530; J1170; J1815; J2250; J2370; J2405; J2765; J3010; J7030